=== PATIENT | male | born 1990 | race Caucasian/White ===

== ENCOUNTER 2022-01-03 09:01 | Emergency (ER) | payer SELFPAY ==
[~2022-01-03] VITALS: Ht 177.8 cm; Wt 77.3 kg
[2022-01-03 09:10] VITALS: BP 133/81
--- NOTE | 2022-01-03 09:49 | PHYS DOC ---
Past History Past Surgical History: No Surgical History Alcohol Use: Occasionally General Adult EDM: Chief Complaint: HEADACHE HPI: HPI: Patient is a 31-year-old male coming in for left temporal and left occipital headache. Patient states that he has a history of chronic migraines, usually at night, but they have been happening in the morning. Patient stated he was concerned that he had a seizure earlier. Patient had seizure 1 time in the past. He states he was throwing up and does not know what happened but woke up on the floor. 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 Patient is not currently seeing a bey for his migraines, states he took Zofran and sumatriptan this morning. States he got those medications from urgent care. He denies any recent illness, new stressors, or head injury. Patient states that they are usually at night but not associated with any positional changes. Review of Systems: Review of Systems: Constitutional: Denies fever or chills Eyes: Denies change in visual acuity HENT: Denies nasal congestion or sore throat Respiratory: Denies cough or shortness of breath Cardiovascular: Denies chest pain or edema GI: Denies abdominal pain, nausea, vomiting, bloody stools or diarrhea : Denies dysuria Musculoskeletal: Denies back pain or joint pain Integument: Denies rash Neurologic: Denies headache, focal weakness or sensory changes Endocrine: Denies polyuria or polydipsia Lymphatic: Denies swollen glands Psychiatric: Denies depression or anxiety Allergies: Allergies: Allergies Coded Allergies Type Severity Reaction Last Updated Verified No Known Drug Allergies 01/03/22 No Physical Exam: PE: Heart rate 43, benign early repol, no ectopy, normal intervals. Current Patient Data: Vital Signs: Vital Signs Date Time Temp Pulse Resp B/P (MAP) Pulse Ox O2 Delivery O2 Flow Rate FiO2 01/03/22 09:10 98.1 59 22 133/81 (98) 100 Room Air EKG: EKG: [] Radiology/Procedures: Radiology/Procedures: [address] [address] IMAGING REPORT Signed PATIENT: ARNEL MILLAN ACCOUNT: [id number] : 1990 LOCATION: ER AGE: 31 SEX: M EXAM STATUS: REG ER ORD. PHYSICIAN: NEGRO COBOS MD REASON: migraine PROCEDURE: CT HEAD WO CONTRAST PQRS Compliance Statement: One or more of the following individualized dose reduction techniques were utilized for this examination: 1. Automated exposure control 2. Adjustment of the mA and/or kV according to patient size 3. Use of iterative reconstruction technique CT head without contrast 01/03/2022 9:47 AM INDICATION: Migraine COMPARISON: None available TECHNIQUE: Multiple axial CT images of the head were obtained from skull base through the vertex without intravenous contrast. FINDINGS: Head: Ventricles, sulci and basal cisterns are within normal limits. There is no hydrocephalus. Jacobs-white matter differentiation is normal. There is no acute intracranial hemorrhage. There is no mass, mass effect or midline shift. Posterior fossa is normal in appearance. Visualized portions of the orbits are normal. Paranasal sinuses are well aerated. Mastoid air cells are well aerated. Scalp and calvaria are normal. IMPRESSION: No acute intracranial hemorrhage. Electronically signed by: Felipa Bucio MD (01/03/2022 10:08 AM) [id number] DICTATED AND SIGNED BY: FELIPA BUCIO MD DATE: 01/03/22 1004 CC: NEGRO COBOS MD; PCP,NO ~ [] Heart Score: C/O Chest Pain: No Risk Factors: Risk Factors: DM, Current or recent (<one month) smoker, HTN, HLP, family history of CAD, obesity. Risk Scores: Score 0 - 3: 2.5% MACE over next 6 weeks - Discharge Home Score 4 - 6: 20.3% MACE over next 6 weeks - Admit for Clinical Observation Score 7 - 10: 72.7% MACE over next 6 weeks - Early Invasive Strategies Course & Med Decision Making: Course & Med Decision Making Pertinent Labs and Imaging studies reviewed. (See chart for details) [] Dragon Disclaimer: Dragon Disclaimer: This electronic medical record was generated, in whole or in part, using a voice recognition dictation system. Departure Departure: Impression: Primary Impression: Migraine Disposition: HOME / SELF CARE / HOMELESS Condition: IMPROVED Referrals: PCP,NO (PCP) Patient Instructions: Migraine Headache, Livy-cf-Hjtt NEGRO COBOS MD January 03, 2022 09:49
[2022-01-03] MEDS: diphenhydrAMINE 50 MG/ML VIAL IVP ONE (09:57)
[2022-01-03] MEDS: PROCHLORPERAZINE 10 MG/2 ML VIAL. IV ONE (09:57)
[2022-01-03] MEDS: IV NORMAL SALINE 1,000ML 1,000 ML IV ONE (09:58)
[2022-01-03] MEDS: KETOROLAC 15 MG/ML VIAL. IVP ONE (09:58)
[2022-01-03 10:09] LABS: BASO # 0.1 x10^3/uL (0.0-0.2); BASO % 0 % (0-3); EOS % 0 % (0-3); HEMATOCRIT 44.5 % (39.0-53.0); HEMOGLOBIN 14.7 g/dL (13.0-17.5); LYMPH # 1.6 x10^3/uL (1.0-4.8); LYMPH % 11 % (24-48); MEAN CORPUSCULAR HEMOGLOBIN 30 pg (25-35); MEAN CORPUSCULAR HGB CONC 33 g/dL (31-37); MEAN CORPUSCULAR VOLUME 91 fL (79-100); MONO # 0.7 x10^3/uL (0.0-1.1); MONO % 5 % (0-9); NEUT # 12.3 x10^3uL (1.8-7.7); NEUT % 84 % (31-73); PLATELET COUNT 225 x10^3/uL (140-400); RED CELL DISTRIBUTION WIDTH 12.2 % (11.5-14.5); WHITE BLOOD COUNT 14.6 x10^3/uL (4.0-11.0)
--- NOTE | 2022-01-03 10:10 | RAD ---
PQRS Compliance Statement: One or more of the following individualized dose reduction techniques were utilized for this examinat ion: 1. Automated exposure control 2. Adjustment of the mA and/or kV according to patient size 3. Use of iterative reconstruction technique CT head without contrast 01/03/2022 9:47 AM INDICATION: Migraine COMPARISON: None available TECHNIQUE: Multiple axial CT images of the head were obtained from skull base through the vertex with out intravenous contrast. FINDINGS: Head: Ventricles, sulci and basal cisterns are within normal limits. There is no hydrocephalus. Jacobs-white matter differentiation is normal. There is no acute intracranial hemorrhage. There is no mass, mass e ffect or midline shift. Posterior fossa is normal in appearance. Visualized portions of the orbits are normal. Paranasal sinuses are well aerated. Mastoid air cells a re well aerated. Scalp and calvaria are normal. IMPRESSION: No acute intracranial hemorrhage. Electronically signed by: Luz Gee MD (01/03/2022 10:08 AM) [id number]
[2022-01-03 10:17] LABS: CALCIUM 9.2 mg/dL (8.5-10.1); GFR 87.7; POTASSIUM 4.3 mmol/L (3.5-5.1)
[2022-01-03 10:32] LABS: ALBUMIN/GLOBULIN RATIO 1.3 (1.0-1.7); TOTAL BILIRUBIN 0.5 mg/dL (0.2-1.0); TOTAL PROTEIN 7.2 g/dL (6.4-8.2)
== END 2022-01-03 11:55 | disposition home or self-care (01) ==
LOC: ER 09:01
DX: G43.909 Migraine, unspecified, not intractable, without status migrainosus (principal)
CPT/HCPCS: 36415; 70450; 80053; 82550; 83605; 83735; 84484; 85025; 96361; 96374; 96375; 99284; J0780; J1200; J1885; J7030